=== PATIENT | male | born 1960 | race Caucasian/White ===

== ENCOUNTER 2016-09-16 06:15 | Emergency (ER) | payer BC ==
--- NOTE | 2016-09-16 19:33 | ER ---
ADMIT: 09/16/2016 RM/LOC: ER [facility] MR#: [id number] [address] [address] ALPHONSE JOSEPH [address] [place] [address] Emergency Room Report SEX: M AGE: 56 : 1960 DATE: 09/16/2016 HISTORY OF PRESENT ILLNESS: The patient is a 56-year-old male, who came to the ER with chief complaint of right knee pain for 1 day. The patient states that 15 hours ago, during the work he slipped and he believed that he twisted the right knee, after that the patient was limping on the right and noticed swelling of the right knee. The patient states in the past, he noticed one time swelling of the right knee and effusion. The patient complains of right knee pain which is moderate and increases with bearing weight or walking on it. In the ER, while the patient was immobilized and still he was in no obvious pain, but as soon as he began moving the right knee, he was in moderate pain. PHYSICAL EXAMINATION: VITAL SIGNS: Stable. GENERAL: There is no obvious signs of trauma in other parts of the body. HEAD AND NECK: Exam is normal. CHEST: Clear bilaterally. HEART: Normal heart sounds. ABDOMEN: Soft. PELVIS: Stable, except for the right knee swelling and decreased range of motion because of the pain. The range of motion of the other extremities are normal. NEUROVASCULAR: Grossly intact. MUSCULOSKELETAL: There is ballottement and mild effusion right knee, there is no obvious tenderness on palpation and grinding of the right patella, ligamentous exam is not completely done because of the pain, but I did not see any obvious problem with the lateral and medial stress test and anterior drawer test. IMAGING PROCEDURE: X-ray did not show any fracture, dislocation, or any acute changes. The patient received Percocet for pain control, knee was put in a knee immobilizer, the patient was discharged home with advise to follow up with the primary doctor for possible referral to the Orthopedic Surgery Clinic per their discretion. DIAGNOSES: Knee sprain, right knee pain. Zachary Bob MD/ sam JOB #: [id number] CC: Zachary Bob MD, Attending Physician [facility] Physician, Family Physician
[2017-01-17] MEDS ORDERED: ULTRAM DPS50 MG PO (20:04)
[2017-01-17] MEDS ORDERED: KLOR-CON M2020 ME1 PO (20:04)
[2017-01-17] MEDS ORDERED: LASIX DPS20 MG PO (20:05)
[2017-01-17] MEDS ORDERED: NOVOLOG FL100 UNIT/1 SQ ×2 (20:05→20:07)
[2017-01-17] MEDS ORDERED: ALDACTONE DPS25 MG PO (20:05)
[2017-01-17] MEDS ORDERED: LANTUS100 UNITS/ SQ (20:06)
[2017-01-17] MEDS ORDERED: PERCOCET 5-3251 EACH PO (20:06)
[2017-01-17] MEDS ORDERED: FEOSOL-DPS325 MG PO (20:07)
[2017-01-17] MEDS ORDERED: TYLENOL EXTRA500 M1 PO (20:07)
[2017-01-17] MEDS ORDERED: SIMETHICONE125 MG PO (20:07)
== END 2016-09-16 07:52 | disposition home or self-care (01) ==
LOC: ER 06:15
PROC: 2W3LX1Z Immobilization of Right Lower Extremity using Splint (ICD-10-PCS; principal; 2016-09-16)
DX: S83.91XA Sprain of unspecified site of right knee, initial encounter (principal); E11.9 Type 2 diabetes mellitus without complications; X50.9XXA Other and unspecified overexertion or strenuous movements or postures, initial encounter

== ENCOUNTER 2016-09-16 20:42 | Emergency (ER) | payer BC ==
--- NOTE | 2016-09-20 19:04 | ER ---
ADMIT: 09/16/2016 RM/LOC: ER [facility] MR#: [id number] [address] [address] ALPHONSE JOSEPH [address] [place] [address] Emergency Room Report SEX: M AGE: 56 : 1960 DATE: 09/16/2016 HISTORY OF PRESENT ILLNESS: The patient is a 56-year-old male, came here with chief complaint of right knee pain. The patient was in the ER for same complaint yesterday and I saw the patient, the patient stated yesterday that he slipped and felt some pain and possibly some twisting movement, which caused the pain on the right knee and noticed the swelling of the right knee. The x-ray of the right knee yesterday was negative for any fracture or dislocation. The patient did not have any new trauma since yesterday, the patient was put yesterday on knee immobilizer and was sent home with return precautions and with a prescription for Percocet and follow up with Orthopedic Surgery, primary care doctor. The patient states Percocet did not work well on the pain, the patient also took off the knee immobilizer too. PHYSICAL EXAMINATION: HEAD AND NECK: Noncontributory. CHEST: Noncontributory. ABDOMEN: Noncontributory. EXTREMITIES: There is the same swelling, mildly decreased since yesterday on the right knee. I did not feel any ballottement, range of motion is limited because of the pain and there is no erythema over the area. The patient received IM morphine, the patient was discharged to home as the pain was controlled moderately. Return precautions, and follow up with the Orthopedic Surgery Clinic and primary doctor as needed. Zachary Bob MD/ sam JOB #: [id number] CC: Zachary Bob MD, Attending Physician [facility] Physician, Family Physician
[2017-01-17] MEDS ORDERED: KLOR-CON M2020 ME1 PO (20:04)
[2017-01-17] MEDS ORDERED: ULTRAM DPS50 MG PO (20:04)
[2017-01-17] MEDS ORDERED: NOVOLOG FL100 UNIT/1 SQ ×2 (20:05→20:07)
[2017-01-17] MEDS ORDERED: ALDACTONE DPS25 MG PO (20:05)
[2017-01-17] MEDS ORDERED: LASIX DPS20 MG PO (20:05)
[2017-01-17] MEDS ORDERED: PERCOCET 5-3251 EACH PO (20:06)
[2017-01-17] MEDS ORDERED: LANTUS100 UNITS/ SQ (20:06)
[2017-01-17] MEDS ORDERED: TYLENOL EXTRA500 M1 PO (20:07)
[2017-01-17] MEDS ORDERED: FEOSOL-DPS325 MG PO (20:07)
[2017-01-17] MEDS ORDERED: SIMETHICONE125 MG PO (20:07)
== END 2016-09-16 21:56 | disposition home or self-care (01) ==
LOC: ER 20:42
DX: S83.91XA Sprain of unspecified site of right knee, initial encounter (principal); E11.9 Type 2 diabetes mellitus without complications; W01.0XXA Fall on same level from slipping, tripping and stumbling without subsequent striking against object, initial encounter

== ENCOUNTER 2016-09-23 17:57 | Inpatient (IN) | payer BC ==
[~2016-09-23] VITALS: Ht 167.6 cm; Wt 137.6 kg
--- NOTE | ~2016-09-23 | ECH ---
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 The estimated left ventricular ejection fraction is 60-65%. Moderate concentric left ventricular hypertrophy. Diastolic assessment reveals Grade I diastolic dysfunction. Procedure Type of Study TTE procedure:Echo Complete SF. Procedure Date Date: 09/26/2016 Start: 08:46 AM Technical Quality: Fair due to patient immobility. Additional Indications:bacteremia Appropriate Use Criteria: 9 Height: 66 inches Weight: 194 pounds BSA: 1.97 m Rhythm: Within normal limits HR: 78 bpm BP: 118/63 mmHg M-Mode/2D Measurements LV Diastolic Dimension: 4.08 cm LV Systolic Dimension: 2.17 cm LV Septum Diastolic: 1.3 cm LV PW Diastolic: 1.38 cm AO Root Dimension: 2.77 cm Cardiac Output: 6.16 l/min LA Dimension: 2.73 cm Cardiac Index: 3.13 l/min*m RV Diastolic Dimension: 3.07 cm LA volume index: 32 ml/m LVOT: 1.96 cm LVOT VTI: 26.2 cm RV Base: 4.2 cm LV Stroke volume: 79.01 ml RV Mid: 3.3 cm LV Stroke volume index: 40.11 ml/m RV Length: 7.3 cm TAPSE: 2.2 cm TDI-S': 22 cm/s Doppler Measurements AV Peak Velocity: 1.39 m/s MV Peak E-Wave: 0.67 m/s AV Peak Gradient: 7.73 mmHg MV Peak A-Wave: 0.83 m/s AV Mean Gradient: 4.1 mmHg MV E/A Ratio: 0.81 LVOT Peak Velocity: 1.22 m/s MV P1/2t: 48.4 msec AV Area (Continuity):2.93 cm MV Deceleration Time: 167 msec MV Area (PHT): 4.54 cm PV Peak Velocity: 0.61 m/s PV Peak Gradient: 1.46 mmHg RA Area: 17.61 cm Findings Left Ventricle The left ventricle is normal in size . Moderate concentric left ventricular hypertrophy. Diastolic assessment reveals Grade I diastolic dysfunction. Right Ventricle Normal right ventricle structure and function. Left Atrium Normal left atrial size. Right Atrium Normal right atrial size. Mitral Valve Normal mitral valve structure and function. Aortic Valve Normal aortic valve structure and function. Tricuspid Valve Normal tricuspid valve structure and function. Pulmonic Valve Normal pulmonic valve structure and function. Pericardial Effusion No evidence of pericardial effusion. Miscellaneous Visualized portions of the aortic root and ascending aorta appear normal in size. Pleural Effusion No evidence of pleural effusion. Signature
--- NOTE | 2016-09-24 07:54 | CO ---
ADMIT: 09/23/2016 RM/LOC: 310 [facility] MR#: [id number] ACC#: [id number] [id number] [place], [place] [address] MANAN JOSEPH [address] [place] [address] Consultation SEX: M AGE: 56 : 1960 DATE OF CONSULTATION: 09/23/2016 ATTENDING PHYSICIAN: Royer Ko CONSULTING PHYSICIAN: Marcos Walters MD CHIEF COMPLAINT: Right knee pain. HISTORY OF PRESENT ILLNESS: Manan has right knee arthritis with a lot of swelling, pain, and warmth. He came to the ED with a blood glucose in excess of 650 with an increased lactate, signs of possible sepsis. In the ED, they had aspirated his knee and found julio césar pus and so I was consulted for concern for infected knee, saw him in the ED. He endorses pain in that knee for couple of weeks now, says that he initially sought care in the ED a couple of times, was established care as an outpatient. It was told he had arthritis and went to another orthopedic surgeon in outside facility, had an MRI done and was told he had a hairline fracture and arthritis, so it was told he is going to need a knee replacement. He was continued to get worse, so he was brought to the ED today, and I have been consulted to evaluate his knee. REVIEW OF SYSTEMS: Otherwise, fairly negative. Endorses just right knee pain and just sort of generalized feeling of illness. PAST MEDICAL HISTORY: He has a very poorly-controlled diabetes. PAST SURGICAL HISTORY: He has had a left knee scope, not on this right in the past. OBJECTIVE: GENERAL: He is awake, he is alert, and he is oriented. He is in no acute distress right now. He is actually afebrile. VITAL SIGNS: All stable with systolic blood pressure in the 110s to 140s. EXTREMITIES: At right knee, he has a large effusion on it. It is a little bit warm and very tender. Pain with any kind of motion with it. He has no redness or erythema around the knee and he is neurovascularly intact. DIAGNOSTIC DATA: X-ray shows chondrocalcinosis and arthritic changes in the right knee with an effusion. Laboratory results of the aspiration taken by the ED showed 338,000 white cells, 150,000 rbc's, many gram-positive cocci on the Gram stain. ASSESSMENT: Manan has a right septic knee. PLAN: I conveyed to the admitting medical physician that he need to go to the ADMIT: 09/23/2016 RM/LOC: 310 [facility] MR#: [id number] [address] [address] MANAN JOSEPH [address] [place] [address] Consultation SEX: M AGE: 56 : 1960 OR for irrigation and debridement; however, he is in fairly critical medical condition approaching DKA and sepsis and says he was not fit for surgery at this time, so in light of that, I at the bed side did a lavage. I injected just about 5 mL of lidocaine and then using a 19-gauge needle and 30 mL syringes 30 mL at a time lavaged the knee through with 1 L of normal saline. I was able to flush that out significantly carpet cleaner. When I completed that 1 liter, it still was not perfectly clean, but it was significantly better, and he endorsed a significant improvement in pain after I did that, and I think that was successful in decreasing the bacterial load in the knee for now. He is going to be aggressively resuscitated overnight, and we will plan for arthroscopic irrigation and debridement as soon as he is cleared for surgery and hopefully this can be done first thing in the morning. Marcos Walters MD/ sam JOB #: [id number] CC: Royer Ko, Attending Physician Royer Ko, Family Physician
--- NOTE | 2016-09-25 19:50 | HP ---
ADMIT: 09/23/2016 RM/LOC: 310 [facility] MR#: [id number] [facility]#: [id number] [address] [address] ALPHONSE JOSEPH [address] [place] [address] History and Physical SEX: M AGE: 56 : 1960 DATE OF SERVICE: CHIEF COMPLAINT: Knee pain. HISTORY OF PRESENT ILLNESS: The patient is a 56-year-old gentleman, who has been in the emergency room twice in the last week for right-sided knee pain. Started about a week ago. He kind of tripped and fell and twisted it when he was walking in his house. Apparently had been in contact with Orthopedic Surgery but had not seen them in the clinic yet. He ended up ultimately going over to Orthopedic Surgery over in [place]. He got an MRI over there. Unclear really regarding his findings at this time. His pain had been worsening over the last week. Got some medications in the emergency room for pain. It has caused a lot of nausea. A lot of emesis. Has not been eating or drinking well at all. Feels very ill. Getting belligerent and confused according to his . This is not like him usually. [facility] Mostly just gets treated for his diabetes. Really has been relatively healthy. Does report that he gets exertional chest pain. Substernal. This is after a long day's work, he states. Goes away. Hard for him to characterize it. Does not know how long it lasts. Has not had any workup for it. Has not had any cardiac evaluation. No prior cardiac history in the past. He has some vague abdominal pain. Really just kind of diffuse. Hard for him to localize. He got an immobilizer in his right knee recently. PAST MEDICAL HISTORY: Type 2 diabetes, poorly controlled. FAMILY HISTORY: He reports diabetes in his mother. SOCIAL HISTORY: Nonsmoker. He lives with his . 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 REVIEW OF SYSTEMS: As per HPI. Otherwise, completely reviewed and negative. Somewhat suspect accuracy due to his confusion. MEDICATIONS: He is on meloxicam 15 mg daily. Recently started on Percocet. He is also on, he states, NovoLog, but he has Novolin insulin with him. He is pretty adamant he is on NovoLog, but either way, he states he takes 35 units subcutaneous twice daily. PAST SURGICAL HISTORY: He has had a scope of his left knee, otherwise none. PHYSICAL EXAMINATION: VITAL SIGNS: Heart rate 88, respiratory rate 16, blood pressure 124/69, saturating 95% on room air. GENERAL: The patient is confused. He tracks conversation reasonably well but is easily having trouble getting clear answers at times. Interacts okay with his . Appeared uncomfortable frequently in the room. HEENT: Normocephalic, atraumatic. Pupils are equal bilaterally. No icterus. Small pupils. Reactive though. Very dry mucous membranes. No intraoral lesions noted. NECK: No lymphadenopathy. Soft, supple. Trachea midline. ADMIT: 09/23/2016 RM/LOC: 310 [facility] MR#: [id number] [address] [address] [place] [address] History and Physical SEX: M AGE: 56 : 1960 LUNGS: Clear to auscultation bilaterally. No wheezes, rales, or rhonchi. HEART: Regular rate and rhythm. No murmurs, rubs, or gallops. Distant. ABDOMEN: He has kind of some diffuse tenderness throughout. No guarding. No rigidity. No masses palpable. EXTREMITIES: No cyanosis or clubbing. He has edema 1+ pitting in his right lower extremity. None in his left lower extremity. MUSCULOSKELETAL: He moves upper extremities reasonably well, 5/5 strength. His right lower extremity knee, he does not move it at all without excruciating pain and tenderness. The left side does not move due to causing pain in his right side, he states. NEUROLOGIC: Intact. Cranial nerves II through XII are grossly intact. SKIN: No rashes noted. No redness over his right knee. No erythema. No warmth. No induration. He has a scar over his left knee from his prior scope. LABORATORY AND X-RAY DATA: His creatinine is 1.9 with a baseline of less than 1. Alkaline phosphatase 326. AST is 77, mag 2.3, bilirubin 1.4, INR 1.1, troponin 0.04 and positive. White count 25,000, hemoglobin 14.2, platelets 152, procalcitonin 3.2. Serum ketones negative. Lactic acid 5.3, sodium 127, potassium 5.4. Fluid of his knee total. White count is 338,000. Chest x-ray shows no acute findings. MRI report from outside facility not available. ASSESSMENT AND PLAN: 1. Septic arthritis. 2. Dehydration. 3. Acute kidney injury. 4. Positive troponin. 5. Diabetes type 2. 6. Confusion. ADMIT: 09/23/2016 RM/LOC: 310 [facility] MR#: [id number] [address] [address] ALPHONSE JOSEPH [address] [place] [address] History and Physical SEX: M AGE: 56 : 1960 The patient currently septic. Seems to have septic arthritis as source. Very dehydrated. Given his symptoms and his elevated troponin, I do not think he is safe at all for the OR at this time unless absolutely emergent, which does not seem to be the case. We will get him there as soon as he is more safe and stable. We will hydrate him up with IV fluids. Watch his electrolytes and renal function. Get his sugars under better control. We will trend his troponin to make sure it does not increase dramatically. I discussed this with Orthopedic Surgery, Dr. Walters, at bedside. He is going to do some flushing of it with hands at bedside currently to try to decrease the burden of infection there. Hopefully, he can get to the OR sooner rather than later. Start some vancomycin. Await the Gram stain to tailor antibiotics if we need to add any differently. Get him some pain control. Royer Ko MD/ sam JOB #: [id number] CC: Royer Ko, Attending Physician Royer Ko, Family Physician
--- NOTE | 2016-09-28 08:49 | OR ---
ADMIT: 09/23/2016 RM/LOC: 427 [facility] MR#: [id number] [facility]#: [id number] [address] [address] MANAN JOSEPH [address] [place] [address] Operative/Delivery Room Report SEX: M AGE: 56 : 1960 SURGERY DATE: 09/25/2016 SURGEON: Marcos Walters MD PREOPERATIVE DIAGNOSIS: Right septic knee. POSTOPERATIVE DIAGNOSIS: Right septic knee. PROCEDURE: Right arthroscopic major debridement. BLOOD LOSS: Ten. COMPLICATIONS: None. IMPLANTS: None. INDICATION: Manan is a 56-year-old male who has a right septic knee. We were waiting for him to get preoperatively medically cleared for surgery. He is cleared for it this morning so I took him back for an arthroscopic I and D. DESCRIPTION OF PROCEDURE: The patient was identified. Written informed consent was confirmed. The site was marked, he was brought to the OR, and placed supine. General anesthesia was induced. The right leg was prepped and draped in the usual sterile fashion. A time-out was performed. Preop antibiotics were confirmed. I began making a standard anterior lateral portal and then under direct visualization, made an anterior medial portal. Did a diagnostic scope. That medial side had almost global grade 4 just julio césar arthritis. No cartilage. Little islands of cartilage here and there. Big meniscus tear in the body with kind of unstable meniscus in the back as well. ACL was intact. There was a ton of synovitis and very inflamed ligamentum mucosum. In the medial compartment, debrided back some of that meniscus, got rid of some of the loose cartilage in kind debrided back quite a bit. I did encounter a little bit of julio césar pus when I got in there as well and that was all kind of debrided back as I went. Debrided out the ligamentum mucosum and then came into the lateral compartment. Just a huge amount of fat pad and hypertrophy. There is also bad chondromalacia there, kind of globally 3 and 4. I went up the trochlea. That had just little islands of cartilage. The ADMIT: 09/23/2016 RM/LOC: 427 [facility] MR#: [id number] [address] [address] MANAN JOSEPH [address] [place] [address] Operative/Delivery Room Report SEX: M AGE: 56 : 1960 patella did not look too bad, actually just some grade 2 and 3 chondromalacia and then just a ton of hypertrophied synovium back there. That was debrided back. I got rid of a lot of that. Once I had kind of it cleaned out, I put a superior lateral outflow portal in and then continued to wash through. Washed through a total of 9 L of normal saline. Once it was running nice and clean after I debrided as much synovium and all as I could, then I put a Hemovac drain in through the superior lateral portal and then put Steris over the incisions. I put him into a full-length compressive sterile dressing. Then he was extubated and brought to the postoperative care unit in good condition. No complications. Postoperatively, we will kind of watch the output of that drain, possibly bring him back Monday again for repeat I and D depending on how he is doing. Marcos Walters MD/ davide JOB #: [id number] CC: Royer Ko, Attending Physician Royer Ko, Family Physician
--- NOTE | 2016-09-30 15:52 | ER ---
ADMIT: 09/23/2016 RM/LOC: 310 [facility] MR#: [id number] ACC#: [id number] 26[address] [facility] [address] [place], [place] [address] ALPHONSE JOSEPH [address] [place] [address] Emergency Room Report SEX: M AGE: 56 : 1960 DATE: 09/23/2016 ADDENDUM: This patient comes to the ER because for the last 2 weeks he has had problems with his right knee. He states that he injured it at work, has been to our ER two times, and on Monday, he saw an orthopedic doctor in [place] where they did an MRI. They told him that he had a hairline fracture in his knee and he needs knee replacement and needs to come back in 2 weeks. His states that the pain is so bad that he is unable to get out of bed. She notices that his blood sugars are really high, he has increased urination, and now he is not acting like his normal self. She thinks he is more aggressive. Denies any fevers. She states he is unable to get out of bed and is urinating himself. PHYSICAL EXAMINATION: GENERAL: This is a very agitated 56-year-old, male. He denies any fevers. Only source of pain is in his right knee. LUNGS: Clear. ABDOMEN: Soft. HEENT: He does have very dry oral mucosa. EXTREMITIES: His knee is tender and slightly warm to the touch but is non red. LABORATORY DATA: His white count was 25.7, lactic acid was 5.3, sodium 127, potassium 5.4, glucose 655, creatinine 1.7. His troponin was elevated at 0.42 and his MB was 15.5. He had 22 white cells in his urine. EMERGENCY DEPARTMENT COURSE: IV of normal saline was started. He hit sepsis criteria. We ordered fluids per sepsis protocol at 30 mL/kg. He was given morphine and Zofran. I did consult with Dr. Hoover concerning treatment of this patient. He also examined the patient. Under a sterile procedure, I did tap his knee and there was a thick yellowish-tinged cloudy fluid. I did order ADMIT: 09/23/2016 RM/LOC: 310 [facility] MR#: [id number] [address] ALPHONSE JOSEPH [address] [place] [address] Emergency Room Report SEX: M AGE: 56 : 1960 a culture Gram stain and cell count. I then spoke with Dr. Walters and Dr. Ko, who both came in and examined the patient and will be admitted by them. DIAGNOSES: 1. Sepsis. 2. Septic right knee. Please see their dictation for further treatment. AVELINO Herrera / Marcos Taylor MD / modl JOB #: [id number] CC: Royer Ko MD, Attending Physician Royer Ko MD, Family Physician . [facility] Marcos Walters MD
--- NOTE | 2016-10-03 14:46 | CO ---
ADMIT: 09/23/2016 RM/LOC: 427 [facility] MR#: [id number] [address] [address] ALPHONSE JOSEPH [address], [place] [address] Consultation SEX: M AGE: 56 : 1960 DATE OF CONSULTATION: 09/27/2026 ATTENDING PHYSICIAN: Royer Ko CONSULTING PHYSICIAN: Meaghan Nickerson MD REASON FOR CONSULTATION: Acute kidney injury. HISTORY OF PRESENT ILLNESS: The patient is a 66-year-old gentleman, who has multiple medical problems as outlined below. He presented to the hospital this time around 5 days ago with chief complaint of right knee pain. He had been having this pain for about a week prior to presentation and had in fact been seen in emergency room twice preceding the hospitalization. He reports an episode when he tripped and fell and twisted his right knee. He had an MRI as an outpatient as well. However, his pain kept getting worse. When he was admitted, he was septic and further workup has revealed septic arthritis, and he has had MSSA bacteremia that is being treated with antibiotics and unfortunately, this has been a persistent issue. As far as his kidneys are concerned, he was admitted with a creatinine of 1.9. It was 1.7 the day after and was 1.8, 2 days ago. His creatinine was 2.2 yesterday and 2.6 this morning. There have been some concerns of urinary retention as well. The patient prior to the hospitalization had been taking meloxicam as well as naproxen. He indicates a history of NSAID use in the past as well. His baseline serum creatinine is unclear but his creatinine in 2012 was 0.9. At the time of this encounter, he feels very weak. He has no appetite at all. He feels swollen all over and this has been a chronic issue for him. He does have a history of hepatic cirrhosis. He continues to have pain in his right knee and has been working with physical therapy. Denies any chest pain or respiratory complaints. REVIEW OF SYSTEMS: A complete review of systems is negative in detail except as mentioned in history of present illness above. PAST MEDICAL HISTORY: 1. Uncontrolled type 2 diabetes mellitus. 2. Hepatic cirrhosis. 3. Hepatitis C infection. 4. Polysubstance abuse. 5. Alcohol abuse. 6. Esophageal varices. ALLERGIES: NO KNOWN DRUG ALLERGIES. SOCIAL HISTORY: Lives here in town with his . He quit smoking several years ago. 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 He has a history of heavy alcohol use and he states he quit drinking alcohol about 3 years ago. He also has a history of polysubstance abuse, and he quit drugs about 15 years ago. ADMIT: 09/23/2016 RM/LOC: 427 [facility] MR#: [id number] [address] [place] [address] AL[address]SE JOSE[address] [facility] [place] [address] Consultation SEX: M AGE: 56 : 1960 FAMILY HISTORY: Son has kidney disease-lupus nephritis. Mother has diabetes. MEDICATIONS: Reviewed in the chart. PHYSICAL EXAMINATION: VITAL SIGNS: Temperature 97.2 Fahrenheit, pulse 75, blood pressure 105/67, saturating 97% on room air. GENERAL: He is in a recliner and appears comfortable. HEENT: Head is nontraumatic and normocephalic. Extraocular movements are intact. No conjunctival pallor. Oral mucosa is dry. NECK: Supple without any lymphadenopathy. CHEST: Clear to auscultation. CVS: Regular rhythm. S1, S2 heard. No rubs, murmurs, or gallops. ABDOMEN: Soft, nontender. EXTREMITIES: 2+ bilateral lower extremity edema. MUSCULOSKELETAL: Right knee is in a bandage and has a drain as well. NEUROLOGIC: Cranial II through XII are grossly normal. He is coherent and is able to carry on a conversation. SKIN: No rash or nodules. LABORATORY DATA: Reviewed. BMP with sodium 131, potassium 4.9, CO2 of 23, creatinine 2.6. Current of serum creatinine has been outlined in HPI above. Hemoglobin 11.4, white count 16.2, calcium 7.3, albumin is 1.2. ALP 636, AST 256, and ALT is 79. Urinalysis upon admission showed severe glucosuria with 1+ blood and 2+ leukocyte esterase. He did not have any proteinuria. Hemoglobin A1c is 11.9. Blood cultures have shown persistent gram-positive bacteremia. ASSESSMENT AND PLAN: 1. Acute kidney injury-baseline serum creatinine is unclear, and [facility]. The differential diagnosis for his acute kidney injury includes prerenal, ADMIT: 09/23/2016 RM/LOC: 427 [facility] MR#: [id number] [facility] [place] [address] ALPHONSE JOSEPH [address] [place] [address] Consultation SEX: M AGE: 56 : 1960 ischemic/septic acute tubular necrosis, allergic interstitial nephritis from antibiotics versus NSAIDs as well as urinary retention/obstruction. Other less likely possibilities include glomerulonephritis or hepatorenal syndrome. I will obtain urinalysis to evaluate further. I agree with the Cheema catheter under renal ultrasound. I will hold off on IV fluids at the time being considering his volume expanded state. We may also need to revisit his antibiotics depending on his urinalysis if there is a concern for an allergic interstitial nephritis. 2. Volume expansion/hypoalbuminemia/cirrhosis. I will look to initiate diuretics when he is hemodynamically stable. Thank you for this consultation. Please do not hesitate to contact me with any questions. Meaghan Nickerson MD/ sam JOB #: [id number] CC: Royer Ko, Attending Physician Royer oK, Family Physician
--- NOTE | 2016-10-06 10:21 | DS ---
ADMIT: 09/23/2016 RM/LOC: 427 [facility] MR#: [id number] [facility]#: [id number] [address] [address] ALPHONSE JOSEPH [address] [place] [address] Discharge Summary SEX: M AGE: 56 : 1960 ADMISSION DATE: 09/23/2016 DISCHARGE DATE: 10/01/2016 CONSULTATIONS: 1. Meaghan Nickerson MD, Nephrology. 2. Marcos Walters MD, Orthopedic Surgery. PROCEDURES: He underwent a right arthroscopic major debridement of his knee on 09/25/2016. FINAL DIAGNOSES: 1. MSSA (Methicillin-susceptible Staphylococcus aureus) septic arthritis, right, spontaneous. 2. Hepatic encephalopathy. 3. Cirrhosis with acute hepatic decompensation. 4. Acute kidney injury, likely ATN (acute tubular necrosis). 5. Upper GI (gastrointestinal) bleed, suspected variceal bleed. 6. Diabetes type 2, poorly controlled. 7. Acute delirium. 8. Urinary retention. REASON FOR ADMISSION: The patient is a 56-year-old gentleman who [facility]. He presented to the Emergency Room with severe right-sided knee pain. Further workup there showed purulent intra- articular fluid. Admitted for further stabilization. HOSPITAL COURSE: The patient was admitted. Given IV fluid resuscitation. He was seen by Orthopedic Surgery. Due to his acute kidney injury and severe hepatic derangement, elevated troponin, he was not stable for the OR initially. Ultimately on the , he was improved after being rehydrated and went to the OR for arthroscopic debridement. He continued to have severe pain in his knee. His confusion worsened. He had some asterixis consistent with some encephalopathy. He started on some lactulose and that improved to some degree. He continued to have persistent blood cultures with MSSA. A TTE was done, which was negative. Cardiology was consulted for LANE although upon discussion with the patient, the patient recalled having varices and was more knowledgeable about his extensive liver history. This was not pursued for the ADMIT: 09/23/2016 RM/LOC: 427 [facility] MR#: [id number] [address] [address] ALPHONSE JOSEPH [address] [place] [address] Discharge Summary SEX: M AGE: 56 : 1960 reason at the center, a LANE, due to no gastroenterologists here. He was improving. His cultures had remained negative. He had worsening renal failure, however. Nephrology was seen. Initial concern was for hepatorenal syndrome, although ultimately not the case and much more likely an ATN versus AIN. His oxacillin was changed to cefazolin. He continued to improve somewhat at least from a confusion standpoint and a pain in his knee standpoint; however, on day of discharge, he had a moderate amount of bright red blood emesis. Given his history of varices, concern for variceal bleed. He was ultimately transferred to [facility] for more higher level of care he required. DISCHARGE INSTRUCTIONS: Please see discharge JUN and transfer MAR. Royer Ko MD/ davide JOB #: [id number] CC: Royer Ko MD, Attending Physician Royer Ko MD, Family Physician
[2017-01-17] MEDS ORDERED: KLOR-CON M2020 ME1 PO (20:04)
[2017-01-17] MEDS ORDERED: ULTRAM DPS50 MG PO (20:04)
[2017-01-17] MEDS ORDERED: LASIX DPS20 MG PO (20:05)
[2017-01-17] MEDS ORDERED: NOVOLOG FL100 UNIT/1 SQ ×2 (20:05→20:07)
[2017-01-17] MEDS ORDERED: ALDACTONE DPS25 MG PO (20:05)
[2017-01-17] MEDS ORDERED: LANTUS100 UNITS/ SQ (20:06)
[2017-01-17] MEDS ORDERED: PERCOCET 5-3251 EACH PO (20:06)
[2017-01-17] MEDS ORDERED: FEOSOL-DPS325 MG PO (20:07)
[2017-01-17] MEDS ORDERED: SIMETHICONE125 MG PO (20:07)
[2017-01-17] MEDS ORDERED: TYLENOL EXTRA500 M1 PO (20:07)
== END 2016-10-01 18:22 | disposition short-term general hospital (02) | DRG 853 ==
LOC: ER 17:57 → 4PCU 22:22 → 3ICU 22:22 → 4PCU 09-24 14:31
PROVIDERS: ADMIT Internal Medicine
PROC: 0SBC4ZZ Excision of Right Knee Joint, Percutaneous Endoscopic Approach (ICD-10-PCS; principal; 2016-09-23)
PROC: 0S9C3ZX Drainage of Right Knee Joint, Percutaneous Approach, Diagnostic (ICD-10-PCS; principal; 2016-09-23)
PROC: 3E1U38Z Irrigation of Joints using Irrigating Substance, Percutaneous Approach (ICD-10-PCS; principal; 2016-09-23)
DX: A41.01 Sepsis due to Methicillin susceptible Staphylococcus aureus (principal); N17.0 Acute kidney failure with tubular necrosis; K72.00 Acute and subacute hepatic failure without coma; M00.9 Pyogenic arthritis, unspecified; G93.41 Metabolic encephalopathy; I85.11 Secondary esophageal varices with bleeding; I24.8 Other forms of acute ischemic heart disease; B37.49 Other urogenital candidiasis; R18.8 Other ascites; E88.09 Other disorders of plasma-protein metabolism, not elsewhere classified; E11.65 Type 2 diabetes mellitus with hyperglycemia; S83.206A Unspecified tear of unspecified meniscus, current injury, right knee, initial encounter; W18.30XA Fall on same level, unspecified, initial encounter; Y92.009 Unspecified place in unspecified non-institutional (private) residence as the place of occurrence of the external cause; I25.10 Atherosclerotic heart disease of native coronary artery without angina pectoris; E86.0 Dehydration; E87.5 Hyperkalemia; R33.9 Retention of urine, unspecified; K74.60 Unspecified cirrhosis of liver; M17.11 Unilateral primary osteoarthritis, right knee; M94.261 Chondromalacia, right knee; M65.9 Synovitis and tenosynovitis, unspecified; Z79.4 Long term (current) use of insulin; Z86.19 Personal history of other infectious and parasitic diseases; Z87.891 Personal history of nicotine dependence